=== PATIENT | male | born 1975 | race Two or more races ===

== ENCOUNTER 2017-10-11 12:53 | Emergency (ER) | payer SELFPAY ==
[2017-10-11] MEDS ORDERED: Diphtheria,Pertussis(Acell),Tetanus Vaccine 0.5 ML SDV IM ONE (14:01)
[2017-10-11] MEDS ORDERED: Bacitracin Oint 1 GM U/D Packet TOP ONE (14:07)
--- NOTE | 2017-10-11 14:07 | EDM.PDOC ---
ED HPI GENERAL MEDICAL PROBLEM - General Chief Complaint: Laceration Stated Complaint: HOLE IN LIP Time Seen by Provider: 10/11/17 14:02 Source of Information: Reports: Patient History Limitations: Reports: No Limitations - History of Present Illness INITIAL COMMENTS - FREE TEXT/NARRATIVE: pt was hit in the mouth with a soft ball and he has a 1/8th in laceration on the left corner of the mouth and he has a 1/4 inch laceration on the inside of the upper lip. Onset: Today Duration: Minutes: Location: Reports: Face Associated Symptoms: Reports: No Other Symptoms - Related Data Allergies Allergy/AdvReac Type Severity Reaction Status Date / Time No Known Allergies Allergy Verified 10/11/17 13:16 Home Meds: Home Meds NK [No Known Home Meds] 10/11/17 [History] Past Medical History - Past Health History Medical/Surgical History: Denies Medical/Surgical History Social & Family History - Tobacco Use Smoking Status *Q: Never Smoker ED ROS GENERAL - Review of Systems Review Of Systems: See Below Constitutional: Reports: No Symptoms HEENT: Reports: Other (laceration on the left upper lip. ) Respiratory: Reports: No Symptoms Cardiovascular: Reports: No Symptoms Endocrine: Reports: No Symptoms GI/Abdominal: Reports: No Symptoms : Reports: No Symptoms ED EXAM, SKIN/RASH Exam: See Below Text/Narrative:: pt was hit in the mouth with a soft ball and has a llaceration of the upper lip General Appearance: Alert, No Apparent Distress Throat/Mouth: Other (pt has a 1/4 inch laceration on the outside of the mouth. He has a 1/4 inch laceration on the inside of the mouth) Head: Atraumatic Neck: Normal Inspection Respiratory/Chest: No Respiratory Distress Cardiovascular: Regular Rate, Rhythm Course - Vital Signs Last Recorded V/S: Last Vital Signs Temp 36.1 C 10/11/17 13:20 Pulse 97 10/11/17 13:20 Resp 14 10/11/17 13:20 BP 145/83 H 10/11/17 13:20 Pulse Ox - Orders/Labs/Meds Orders: Active Orders 24 hr Category Date Time Status Vaccines to be Administered [RC] PER UNIT ROUTINE Care 10/11/17 14:01 Active Meds: Medications Discontinued Medications Generic Name Dose Route Start Last Admin Trade Name Freq PRN Reason Stop Dose Admin Bacitracin 1 dose 10/11/17 14:07 10/11/17 14:25 Bacitracin Oint 1 Gm TOP 10/11/17 14:08 1 dose ONETIME ONE Administration Diphtheria/Tetanus/Acell Pertussis 0.5 ml 10/11/17 14:01 10/11/17 14:24 Adacel IM 10/11/17 14:02 0.5 ml .ONCE ONE Administration Lidocaine HCl 5 ml 10/11/17 14:01 10/11/17 14:20 Xylocaine-Mpf 1% INJECT 10/11/17 14:02 5 ml ONETIME ONE Administration - Re-Assessments/Exams Free Text/Narrative Re-Assessment/Exam: 10/11/17 14:05 The area was cleansed and infiltrated with lidocaine. The inside wound was closed with 5-0 chromic and the outside with 6- 0 prolene. bacatracin was applied. Departure - Departure Time of Disposition: 14:23 Disposition: Home, Self-Care 01 Condition: Fair Clinical Impression: Laceration - Discharge Information Instructions: Laceration Care, Adult, [id number] Referrals: PCP,None [Primary Care Provider] - Forms: ED Department Discharge Care Plan Goals: sr on the outer lip in 5 days, keflex 500mg tid for 7 days, cool pack to the lip, motrin 600mg q6h prn for pain - My Orders Last 24 Hours: My Active Orders 10/11/17 14:01 Vaccines to be Administered [RC] PER UNIT ROUTINE - Assessment/Plan Last 24 Hours: My Active Orders 10/11/17 14:01 Vaccines to be Administered [RC] PER UNIT ROUTINE
== END 2017-10-11 14:50 | disposition home or self-care (01) ==
LOC: JP.ED 12:53
DX: S01.511A Laceration without foreign body of lip, initial encounter (principal); W22.8XXA Striking against or struck by other objects, initial encounter; Z23 Encounter for immunization
CPT/HCPCS: 12011; 90471; 90715; 99283-25